=== PATIENT | male | born 1960 | race Caucasian/White ===

== ENCOUNTER 2016-06-20 15:13 | Emergency (ER) | payer OTHER ==
[~2016-06-20] VITALS: Ht 177.8 cm; Wt 65.0 kg
[2016-06-20] MEDS ORDERED: PERCOCET 5/325M1 TAB PO (17:17)
[2016-06-20 17:45] VITALS: BP 129/85
== END 2016-06-20 17:45 | disposition home or self-care (01) | DRG 563 ==
LOC: ED 15:13
PROC: 2W3MX1Z Immobilization of Left Lower Extremity using Splint (ICD-10-PCS; principal; 2016-06-20)
DX: S92.002A Unspecified fracture of left calcaneus, initial encounter for closed fracture (principal); W17.89XA Other fall from one level to another, initial encounter